=== PATIENT | male | born 1940 | race Caucasian/White ===

== ENCOUNTER 2017-06-29 17:35 | Inpatient (IN) | payer MEDICARE, MEDICAID ==
[~2017-06-29] VITALS: Ht 167.6 cm; Wt 79.4 kg
--- NOTE | 2017-06-29 17:35 | NUR ---
PORSHA WHITE BUCKNER FOR PSYCH EVAL, PATIENT WAS AGGRESSIVE IN THE FACILITY. VSS NAD A/OX2 CONFUSED. WILL CONTINUE TO MONITOR FOR ANY CHANGES DURING THE SHIFT.
[2017-06-29] MEDS ORDERED: LEVO200T8 GT (19:02)
[2017-06-29] MEDS ORDERED: ACET-2605 PO (19:02)
--- NOTE | 2017-06-29 19:15 | NUR ---
ATTEMPTED TO CONTACT [facility] REGARDING PT HX AND BEHAVIOR. NO NURSE AVAILABLE.
[2017-06-29 19:45] LABS: BASOPHILS % (AUTO) 0.4 % (0.0-2.0); HEMATOCRIT 37 % (39-51); HEMOGLOBIN 12.6 g/dL (13.5-17.5); LYMPHOCYTES % (AUTO) 10.3 % (20.0-44.0); MEAN CORPUSCULAR HGB CONC 34 g/dl (31.0-36.0); MEAN CORPUSCULAR VOLUME 89 fL (80-96); MONOCYTES # (AUTO) 0.7 /CMM (0.1-1.30); MONOCYTES % (AUTO) 7.4 % (2.0-12.0); NEUTROPHILS # (AUTO) 7.8 /CMM (1.8-8.9); NEUTROPHILS % (AUTO) 80.9 % (43.0-81.0); PLATELET COUNT (AUTO) 226 /CMM (150-450); RDW COEFFICIENT OF VARIATION 14.5 (11.5-15.0); WHITE BLOOD COUNT (AUTO) 9.6 K/uL (4.3-11.0)
--- NOTE | 2017-06-29 20:15 | NUR ---
PT WANDERING AROUND ER. PT CONFUSED AND UNORIENTED. ATTEMPTING TO REDIRECT PT.
[2017-06-29 20:26] LABS: CALCIUM, SERUM 9.1 mg/dL (8.5-10.1); CARBON DIOXIDE 26 mmol/L (21-32); CHLORIDE 103 mmol/L (98-107); GLUCOSE 89 mg/dL (74-106); POTASSIUM 3.9 mmol/L (3.5-5.1); SODIUM SERUM 140 mmol/L (136-145); UREA NITROGEN, BLOOD 19 mg/dL (7-18)
[2017-06-29 20:31] LABS: ALANINE AMINOTRANSFERASE 23 U/L (12-78); ALCOHOL, BLOOD < 3 mg/dL (0-0); ALKALINE PHOSPHATASE 69 U/L (46-116); ASPARTATE AMINOTRANSFERASE 22 U/L (15-37); BILIRUBIN,DIRECT 0.2 mg/dL (0.0-0.2); BILIRUBIN,TOTAL 1.3 mg/dL (0.2-1.0); TOTAL PROTEIN, SERUM 7.2 g/dL (6.4-8.2)
--- NOTE | 2017-06-29 20:40 | NUR ---
PT BECOMING INCREASINGLY AGITATED. PT UNDIRECTABLE. PT BECOMING PHYSICALLY AGGRESSIVE WITH STAFF AND YELLING WHEN ATTEMPTING TO BE REDIRECTED. DR AGUILA NOTIFIED.
[2017-06-29] MEDS ORDERED: HALOPERIDOL LACTATE INJ 5 MG/ML VIAL ONE (20:43)
[2017-06-29] MEDS ORDERED: HALOPERIDOL LACTATE INJ 5 MG/ML VIAL IM ONE (21:00)
--- NOTE | 2017-06-29 21:37 | NUR ---
THEO MONTES DE OCA CRISIS TEAM AT BEDSIDE FOR EVAL.
--- NOTE | 2017-06-29 21:44 | NUR ---
REPORT GIVEN TO CHIOMA MONTES DE OCA FOR CONTINUATION OF CARE.
[2017-06-30] MEDS ORDERED: MAG HYDROX/AL HYDROX/SIMETH 30 ML UDC PO PRN
[2017-06-30] MEDS ORDERED: ACETAMINOPHEN 325 MG TABLET PO PRN
[2017-06-30] MEDS ORDERED: MAGNESIUM HYDROXIDE 30 ML UDC PO PRN
[2017-06-30 00:48] VITALS: BP 135/84
--- NOTE | 2017-06-30 00:50 | NUR ---
ADMISSION NOTES ADMITTED THIS 77 Y/O MALE PATIENT ADMIT FROM [facility] ER/ , PT. INTIALLY CAME FROM [facility]. PT IS ON 5150 HOLD FOR GD ,DTO , PER HOLD PT. IS AGRESSIVE AND TWISTED FEMALE EMPLOYE ARM CAUSING INJURY UNCOOPERATIVE WITH STAFF CONFUSED, DISORGNIZE , DISORIENTED , UPON FACE TO FACE ASSESSMENT PATIENT IS A&O X1 AGRESSIVE UNCOOPERTIVE, CONFUSED DISORGNIZED , PT. IS POOR HISTORIAN, POOR INSIGHT ,POOR JUDGEMENT , V/S WNL, NO ACUTE DISTRESS NOTED, HX OF DEMENTIA , ANXIETY,HYPOTHYRODISM , MD AWARE AND NOTIFIED OF THE ADMISSION, SKIN ASSESSMENT DONE . PICTURE TAKEN AND PLACED IN THE CHART, ENCOURAGED PT. VERBALIZED ANY FEELING CONCERN TO STAFF, ORIENT TO UNIT POLICY, WILL CONTINUE TO MONITOR FOR Q15 SAFETY AND BEHAVIOR.
[2017-06-30] MEDS ORDERED: LORAZEPAM 0.5 MG TABLET PO PRN (01:30)
[2017-06-30] MEDS: TEMAZEPAM 7.5 MG CAPSULE PO PRN ×2 (01:48→21:37)
[2017-06-30 08:10] VITALS: BP 125/70
--- NOTE | 2017-06-30 09:20 | NUR ---
GPS/RN-NOTES PATIENT VERY ANXIOUS PACING ,GOING IN TO ROOM TO ROOM, REDIRECTED AND OFFERED ATIVAN. ATIVAN 0.5MG P.O PATIENT TOOK THE MEDICATION BUT SPIT. STATED" NO ,I DON'T TAKE ANY MEDICATION BECAUSE I DON'T KNOW WHAT'S IN IT".
--- NOTE | 2017-06-30 13:56 | NUR ---
SW received a visit from Stephenie Covarrubias, Community Relations from [facility]; [address] [address] [facility] [address] and reported pt being a resident of their facility. Per Ms. Covarrubias, pt will be retuning to facility once he is ready and stable. SW will follow up to ensure pt is safely and adequately discharged.
[2017-06-30 16:00] VITALS: BP 141/76
[2017-06-30 19:50] VITALS: BP 155/78
[2017-06-30 20:00] VITALS: BP 155/78
[2017-06-30] MEDS: QUETIAPINE FUMARATE 25 MG TABLET PO SCH (21:37)
--- NOTE | 2017-06-30 21:37 | NUR ---
PT VERBALIZED C/O INABILITY TO SLEEP, NON PHARMACOLOGICAL INTERVENTION RENDERED INEFFECTIVE. PT REQUESTED FOR RESTORIL GIVEN ORDERED. WILL CONT TO MONITOR, BP : 155/78, HR: 79, RR: 19, O2 SAT : 96 %. WILL CONT TO MONITOR.
--- NOTE | 2017-06-30 23:49 | NUR ---
PT ASLEEP AT THIS TIME, APPEARS COMFORTABLE. NO DISTRESS, NO SOB AT THIS TIME. WILL CONT TO MONITOR.
[2017-07-01 07:13] LABS: APPEARANCE,URINE CLEAR (CLEAR); BILIRUBIN,URINE NEGATIVE (NEGATIVE); BLOOD, URINE NEGATIVE Ery/uL (NEGATIVE); COLOR,URINE YELLOW (YELLOW); KETONES,URINE NEGATIVE (NEGATIVE); LEUKOCYTE ESTERASE ,URINE NEGATIVE (NEGATIVE); NITRITE, URINE NEGATIVE (NEGATIVE); PROTEIN,URINE NEGATIVE (NEGATIVE); UGLUCOSE NEGATIVE (NEGATIVE); UROBILINOGEN,URINE 0.2 EU/dL (0.2)
[2017-07-01] MEDS: LEVOTHYROXINE SODIUM 100 MCG TABLET PO SCH (07:45)
[2017-07-01 08:32] VITALS: BP 125/74
[2017-07-01] MEDS: QUETIAPINE FUMARATE 25 MG TABLET PO SCH ×2 (09:16→21:40)
--- NOTE | 2017-07-01 13:58 | NUR ---
Initial Discharge Plan: Pt resides at [facility]; [address] [place] [address]; . Upon discharge pt will be returning to the facility. SW contacted pts , Elly Kaab for collateral information due to pt being a poor historian. SW will follow up to ensure pt is safely and adequately discharged.
--- NOTE | 2017-07-01 15:08 | NUR ---
GPS/RN-NOTES NOTED PATIENT WITH AGGRESSIVE BEHAVIOR PUSHING GRABBING CHAIR IN THE DAY ROOM,REDIRECTED AND OFFERED ATIVAN BUT PATIENT REFUSED.
[2017-07-01 20:00] VITALS: BP 137/75
[2017-07-01] MEDS: TEMAZEPAM 7.5 MG CAPSULE PO PRN (21:40)
--- NOTE | 2017-07-02 01:10 | NUR ---
GPS/LINEN KEEPER NOTES: PT. GRAB A HOLD OF BARREL TESTER ANAIS EMPLOYEE ID. BARREL TESTER THEN PROCEED TO GRAB HIS HAND AND PRY HIS NAME ID OF PT. HAND. PT. NOW C/O PAIN ON HIS LEFT HAND WITH A RATING OF 8/10 ON PAIN SCALE. PAGED MD BISQUE CLEANER AND WAITING FOR RETURN CALL BACK.
--- NOTE | 2017-07-02 01:15 | NUR ---
GPS/PHOTOGRAMMETRIC SURVEYOR NOTES: OFFERED PT. ACETAMINOPHEN 650MG PO PRN ORDERED. PT. REFUSED. OFFERED 3X. EXPLAINED RISK AND BENEFITS PT. STILL REFUSED.
--- NOTE | 2017-07-02 01:23 | NUR ---
GPS/CANDLE CUTTER NOTES: MD GEE CALLED. EXPLAINED PT. C/O PAIN AND INCIDENT THAT OCCURED. ORDERED COMPLETE XRAY OF LEFT HAND AND MOTRIN 400MG PO PRN Q6.
[2017-07-02] MEDS ORDERED: IBUPROFEN 400 MG TABLET PO PRN (01:30)
--- NOTE | 2017-07-02 01:34 | NUR ---
GPS/RECRUITING INTERNSHIP NOTES: OFFERED PT. MOTRIN 400MG PO PRN ORDERED FOR PAIN. PT. STILL REFUSED PAIN MEDICATION. OFFERED 3X. EXPLAINED RISK AND BENEFITS. PT. STILL REFUSED.
[2017-07-02] MEDS: LEVOTHYROXINE SODIUM 100 MCG TABLET PO SCH ×2 (07:30→07:58)
[2017-07-02] MEDS: QUETIAPINE FUMARATE 25 MG TABLET PO SCH ×4 (07:58→22:00)
[2017-07-02 08:00] VITALS: BP 131/88
--- NOTE | 2017-07-02 14:13 | NUR ---
GPS/RN-NOTES RECEIVED VERBAL ORDER FROM DR. CHRISTOPHER TO CHANGE DEPAKOTE 125MG P.O TO DEPAKOTE SPRINKLE 125MG P.O Q5PM.NOTED AND CARRIED OUT. Addendum: 07/02/17 at 1728 by FIDEL MARTINEZ RN IN ADDITION TO MY NOTES ABOVE ALL DEPAKOTE ORDER WILL CHANGE TO DEPAKOTE SPRINKLE PER MR. CHRISTOPHER.
[2017-07-02 16:00] VITALS: BP 115/69
[2017-07-02] MEDS ORDERED: DIVALPROEX SODIUM 125 MG TABLET.DR PO SCH ×2 (17:00→21:00)
[2017-07-02] MEDS: DIVALPROEX SODIUM 125 MG CAP.SPRINK PO SCH ×3 (17:26→21:00)
[2017-07-02 20:00] VITALS: BP 133/56
--- NOTE | 2017-07-03 | NUR ---
GPS RN NOTE: PATIENT REFUSED PM MEDICATION, EXPLAINED THE RISK AND BENEFITS X 3 ATTEMPTS BUT PATIENT STILL REFUSED. WILL CONTINUE TO MONITOR [id number] FOR SAFETY
[2017-07-03] MEDS: LEVOTHYROXINE SODIUM 100 MCG TABLET PO SCH ×2 (07:30→09:05)
[2017-07-03] MEDS: QUETIAPINE FUMARATE 25 MG TABLET PO SCH ×3 (09:00→21:54)
[2017-07-03] MEDS: DIVALPROEX SODIUM 125 MG CAP.SPRINK PO SCH ×4 (09:00→21:54)
[2017-07-03 16:23] VITALS: BP 138/54
[2017-07-03 20:00] VITALS: BP 130/75
[2017-07-04 08:06] VITALS: BP 140/73
[2017-07-04] MEDS: DIVALPROEX SODIUM 125 MG CAP.SPRINK PO SCH ×3 (09:02→21:04)
[2017-07-04] MEDS: QUETIAPINE FUMARATE 25 MG TABLET PO SCH ×2 (09:02→21:04)
[2017-07-04] MEDS: LEVOTHYROXINE SODIUM 100 MCG TABLET PO SCH (09:02)
[2017-07-04 16:08] VITALS: BP 144/76
[2017-07-04 20:00] VITALS: BP 132/78
[2017-07-05] MEDS: LEVOTHYROXINE SODIUM 100 MCG TABLET PO SCH ×2 (07:30→09:14)
[2017-07-05 08:53] VITALS: BP 150/85
[2017-07-05] MEDS: DIVALPROEX SODIUM 125 MG CAP.SPRINK PO SCH ×5 (09:00→21:05)
[2017-07-05] MEDS: QUETIAPINE FUMARATE 25 MG TABLET PO SCH ×3 (09:00→21:05)
[2017-07-05 16:00] VITALS: BP 119/86
[2017-07-05 19:52] VITALS: BP 129/73
[2017-07-06] MEDS: TEMAZEPAM 7.5 MG CAPSULE PO PRN ×2 (02:59→22:48)
[2017-07-06 08:05] VITALS: BP 143/73
[2017-07-06] MEDS: QUETIAPINE FUMARATE 25 MG TABLET PO SCH ×2 (08:18→21:36)
[2017-07-06] MEDS: LEVOTHYROXINE SODIUM 100 MCG TABLET PO SCH (08:18)
[2017-07-06] MEDS: DIVALPROEX SODIUM 125 MG CAP.SPRINK PO SCH ×3 (08:18→21:27)
[2017-07-06 16:00] VITALS: BP 113/62
[2017-07-06 20:02] VITALS: BP 120/69
--- NOTE | 2017-07-07 07:30 | NUR ---
RN GPS NOTES PT AWAKE, SITTING IN GERICHAIR AT THE ACTIVITY ROOM, NO SIGN OF PAIN, NOT IN DISTRESS, WITH CONFUSION, SAFETY PREACAUTIONS OBSERVED.
[2017-07-07 08:00] VITALS: BP 112/76
[2017-07-07] MEDS: LEVOTHYROXINE SODIUM 100 MCG TABLET PO SCH (08:41)
[2017-07-07] MEDS: DIVALPROEX SODIUM 125 MG CAP.SPRINK PO SCH ×3 (08:41→21:20)
[2017-07-07] MEDS: QUETIAPINE FUMARATE 25 MG TABLET PO SCH ×2 (08:41→21:20)
[2017-07-07 16:00] VITALS: BP 122/74
--- NOTE | 2017-07-07 18:22 | NUR ---
RN GPS NOTES PT AWAKE, IN THE ACTIVITY ROOM, SITTING IN THE GERICHAIR, ALERT AND VERBALLY RESPONSIVE, WITH CONFUSION, CALM AND ABLE TO FOLLOW CUES, ASSISTED WITH MEALS, NEEDS ATTENDED.
[2017-07-07 20:09] VITALS: BP 143/73
[2017-07-08] MEDS: TEMAZEPAM 7.5 MG CAPSULE PO PRN (02:45)
[2017-07-08 08:00] VITALS: BP 149/70
[2017-07-08] MEDS: LEVOTHYROXINE SODIUM 100 MCG TABLET PO SCH (08:28)
[2017-07-08] MEDS: DIVALPROEX SODIUM 125 MG CAP.SPRINK PO SCH (08:28)
[2017-07-08] MEDS: QUETIAPINE FUMARATE 25 MG TABLET PO SCH (08:28)
--- NOTE | 2017-07-08 08:57 | NUR ---
DR. CHRISTOPHER GAVE AN ORDER TO D/C HOLD AND D/C TO [facility] AND TO FOLOW UP WITH PSYCH AND MEDICAL DOCTORS.
--- NOTE | 2017-07-08 13:30 | NUR ---
GPS/RN PATIENT CLEARED FOR DISCHARGE TO [facility] BY DR CHRISTOPHER AND JULIENNE WILSON. MEDICATIONS RECONCILED BY BOTH DR'S, PRESCRIPTIONS INCLUDED IN PACKET.PRESCRIPTIONS FAXED TO [facility], MEDICATIONS, EXIT CARE AND AFTER CARE PLAN EXPLAINED TO PATIENT, VERBALIZED UNDERSTANDING, VALUABLES AND BELONGINGS RETURNED TO PATIENT, PATIENT DENIES SI/HI/AH UPON DISCHARGE, PSYCHIATRIC TREATMENT PLANS MET. D/C PHOTOS TAKEN, LEFT UNIT CALM, COOPERATIVE, NO DISTRESS NOTED WITH AMBULANCE TRANSPORT AT SIDE.
--- NOTE | 2017-07-08 15:12 | NUR ---
Patient will discharge to [facility]; [address] [place] [address]; via ambulance (trip [id number]) at 1:00pm. Pt and pts , Elly Kaba have been notified and are in agreement. Ptw will be followed at the facility by the following physicians: Psychiatrist: Dr. Ashlee Rae, [id number], [facility] [address]; and Traffic Maintenance Supervisor: Dr. Rikki Marcos; [address] [place] [address]; .
== END 2017-07-08 13:49 | DRG 885 ==
LOC: ER 17:37 → GPS 22:31
PROVIDERS: ADMIT Psychiatry & Neurology Psychiatry; ATTEND Psychiatry & Neurology Psychiatry
DX: F29 Unspecified psychosis not due to a substance or known physiological condition (principal); F03.91 Unspecified dementia, unspecified severity, with behavioral disturbance; E03.9 Hypothyroidism, unspecified; Z79.899 Other long term (current) drug therapy; Z73.6 Limitation of activities due to disability; F41.9 Anxiety disorder, unspecified; F32.9 Major depressive disorder, single episode, unspecified; F94.0 Selective mutism
CPT/HCPCS: 36415; 73130-TC; 80048-TC; 80076-TC; 80305; 81000-TC; 84439-TC; 84443-TC; 84480; 85025-TC; 87081-TC; A4606; G0480; J1630; Z7610

== ENCOUNTER 2017-07-25 07:01 | Inpatient (IN) | payer MEDICARE ==
[~2017-07-25] VITALS: Ht 172.7 cm; Wt 74.8 kg
[~2017-07-25 07:01] MED LIST: ACET-2605 PO; LEVO200T8 GT
--- NOTE | 2017-07-25 07:06 | NUR ---
BBRA FROM [facility]; "GTUBE CAME OUT 45 MIN FIELD MARKETING LEAD"
[2017-07-25] MEDS ORDERED: OLANZAPINE 10 MG VIAL IM ONE ×4 (07:22→10:00)
[2017-07-25 07:44] LABS: EOSINOPHILS % (AUTO) 0.6 % (0.0-6.0); HEMATOCRIT 39 % (39-51); LYMPHOCYTES % (AUTO) 5.2 % (20.0-44.0); MEAN CORPUSCULAR HGB CONC 34 g/dl (31.0-36.0); MEAN CORPUSCULAR VOLUME 88 fL (80-96); MONOCYTES # (AUTO) 0.9 /CMM (0.1-1.30); MONOCYTES % (AUTO) 4.5 % (2.0-12.0); NEUTROPHILS # (AUTO) 17.7 /CMM (1.8-8.9); NEUTROPHILS % (AUTO) 89.7 % (43.0-81.0); RDW COEFFICIENT OF VARIATION 14.7 (11.5-15.0); RED BLOOD CELL COUNT(AUTO) 4.42 MIL/uL (4.5-6.0); WHITE BLOOD COUNT (AUTO) 19.8 K/uL (4.3-11.0)
[2017-07-25 07:59] LABS: CALCIUM, SERUM 9.8 mg/dL (8.5-10.1); CARBON DIOXIDE 34 mmol/L (21-32); CHLORIDE 101 mmol/L (98-107); CREATININE 1.2 mg/dL (0.6-1.3); GLUCOSE 109 mg/dL (74-106); INR 1.14 (0.87-1.13); PLATELET COUNT (AUTO) 906 /CMM (150-450); POTASSIUM 4.3 mmol/L (3.5-5.1); SODIUM SERUM 142 mmol/L (136-145); UREA NITROGEN, BLOOD 9 mg/dL (7-18)
[2017-07-25] MEDS ORDERED: MEROPENEM 1 G in IV NS 0.9% 100 ML IV ONE (08:00)
[2017-07-25] MEDS ORDERED: VANCOMYCIN 1 GM in IV D5W 250 ML IV ONE (08:00)
[2017-07-25] MEDS ORDERED: IV NS 0.9% 1,000 ML BAG IV ONE (08:00)
[2017-07-25] MEDS ORDERED: LORAZEPAM INJ 2 MG/ML VIAL IVP ONE (08:00)
[2017-07-25] MEDS ORDERED: LORAZEPAM INJ 2 MG/ML VIAL ONE ×2 (08:12→09:19)
[2017-07-25] MEDS ORDERED: ATOR40TA GT (08:19)
[2017-07-25] MEDS ORDERED: DIVA125T2 GT (08:19)
[2017-07-25] MEDS ORDERED: ASPI-1169 GT (08:19)
[2017-07-25] MEDS ORDERED: CRAN3875 GT (08:19)
[2017-07-25] MEDS ORDERED: QUET25TA GT (08:19)
[2017-07-25] MEDS ORDERED: LACT1CAP72 PO (08:19)
[2017-07-25 08:35] LABS: ALANINE AMINOTRANSFERASE 37 U/L (12-78); ALBUMIN 3.2 g/dL (3.4-5.0); ALKALINE PHOSPHATASE 74 U/L (46-116); ASPARTATE AMINOTRANSFERASE 42 U/L (15-37); BILIRUBIN,DIRECT 0.2 mg/dL (0.0-0.2); TOTAL PROTEIN, SERUM 7.6 g/dL (6.4-8.2)
[2017-07-25 08:38] LABS: TROPONIN I < 0.017 ng/mL (0.00-0.056)
--- NOTE | 2017-07-25 09:27 | NUR ---
VERBAL ORDER ATIVAN 1MG IV AND ZYPREXA 5MG IM
[2017-07-25 09:53] LABS: APPEARANCE,URINE Clear (CLEAR); BILIRUBIN,URINE Negative (NEGATIVE); BLOOD, URINE Negative Ery/uL (NEGATIVE); COLOR,URINE Yellow (YELLOW); KETONES,URINE Trace (NEGATIVE); LEUKOCYTE ESTERASE ,URINE Negative (NEGATIVE); NITRITE, URINE Negative (NEGATIVE); PH,URINE 7.5 (5.0-8.0); PROTEIN,URINE Negative (NEGATIVE); UGLUCOSE Negative (NEGATIVE); UROBILINOGEN,URINE 0.2 EU/dL (0.2)
[2017-07-25] MEDS ORDERED: LORAZEPAM INJ 2 MG/ML VIAL IV ONE (10:00)
--- NOTE | 2017-07-25 10:33 | NUR ---
MS-202 NURSE KINZA
--- NOTE | 2017-07-25 10:36 | NUR ---
GAVE REPORT TO KINZA MONTES DE OCA [facility] GTUBE REPLACEMENT AGITATION JULIENNE WILSON ADMITTING .
[2017-07-25 11:20] VITALS: BP 161/89
--- NOTE | 2017-07-25 11:30 | NUR ---
RN ADMITTING NOTES PATIENT ARRIVED TO UNIT AT 11AM AND PLACED IN ROOM 202. GOWN CHANGED, DIAPER CHANGED, SKIN ASSESSMENT COMPLETED, PICTURES TAKEN AND PLACED IN THE CHART. PATIENT IS AGITATED AND TRYING TO PULL ON HIS IV AND GASTRIC TUBE, ORDER FOR SOFT RESTRAINTS OBTAINED. BED IN LOW POSITION, LOCKED AND TWO SIDE RAILS ARE UP. CALL LIGHT WITHIN REACH FOR SAFETY. IV SITE IN INTACT AND PATENT, COVERED WITH KERLIX. NO PERSONAL BELONGING UPON ADMISSION. DR WILSON NOTIFIED, PENDING ADMITTING ORDERS. NO SIGNS AND SYMPTOMS OF DISTRESS OR PAIN. WILL CONTINUE TO MONITOR AND ASSESS PATIENT
[2017-07-25 16:00] VITALS: BP 149/86
[2017-07-25] MEDS ORDERED: ACETAMINOPHEN 650 MG/SUPP.RECT RC PRN (17:00)
[2017-07-25] MEDS ORDERED: Z GUARD REMEDY 2 OZ OINT TP PRN (17:00)
[2017-07-25] MEDS ORDERED: ONDANSETRON HCL/PF 4 MG/2 ML VIAL IVP PRN (17:00)
[2017-07-25] MEDS: IV NS 0.9% 1,000 ML IV PRN (17:22)
[2017-07-25] MEDS: QUETIAPINE FUMARATE 25 MG TABLET GT SCH ×2 (18:11→23:00)
[2017-07-25] MEDS: ENOXAPARIN SODIUM 40 MG/0.4 ML DISP.SYRIN SQ SCH (18:15)
[2017-07-25] MEDS: JEVITY 1.2 CAL 1,000 ML BOTTLE GT PRN (18:26)
--- NOTE | 2017-07-25 18:48 | NUR ---
RN CLOSING NOTES PATIENT IS IN BED, CONFUSED. SATURATING 95-98% ON ON 3L NC, NO SIGNS AND SYMPTOMS OF DISTRESS. DENIED PAIN. IV ACCESS INTACT AND PATENT, COVERED WITH KERLIX. SAFETY PRECAUTIONS FOR FALL INITIATED, BED IN LOW POSITION, LOCKED AND TWO SIDE RAILS ARE UP FOR SAFETY. CALL LIGHT IN REACH. ALL NURSING CARE PROVIDED. PATIENT KEPT CLEAN AND DRY. WILL ENDORSE TO NIGHT RN FOR MIRTA.
--- NOTE | 2017-07-25 19:20 | NUR ---
RN INITIAL NOTES: RECEIVED REPORT FROM FALGUNI ECHOLS PT FROM [facility] CAME IN FOR GTUBE REPLACEMENT. PT BEEN COMBATIVE TRIED PULLING LINES AND GTUBE, WAS GIVEN IM ZYPREXA IN ER, ALSO ATIVAN, AND ATB. PT IN THE UNIT WITH BILATERAL SOFT WRIST RESTRAINT IN PLACED, PT ABLE TO MOVE AND WIGGLE ARMS, WITH GOOD CAPILLARY REFILL NOTED, BILATERAL RADIAL PULSES PATENT AND PALPABLE, NO S/S OF IMPEDIMENT IN CIRCULATION NOTED. PT ON GTUBE FEEDING, JEVITY 1.2 AT 20ML/HR, GOAL IS 55, HOWEVER RESIDUAL NOTED IS 50ML, BROWN COLORED, ABDOMEN SOFT TO TOUCH WITH ACTIVE BOWEL SOUND NOTED, PT HAS ABDOMINAL BINDER IN PLACED, AND ALSO ON GTUBE SITE THERE IS A DRESSING/SECURED DRESSING IN ORDER FOR THE GTUBE TO NOT BE PULLED OUT. PT HAS IV ACCESS PATENT AND FLUSHING WELL, INFUSING WITH NS AT 75ML/HR. BLE OFFLOADED. POT ON 3L NC, RESPIRATION EVEN AND UNLABORED. PT IS CONFUSED, AROUSABLE, TALKING TO HIMSELF, TRIED SCRATCHING AND PULLING OUT GOWN AND BLANKETS. SAFETY PRECAUTIONS FOR FALL INITIATED, CALL LIGHT IN REACH, WILL CONTINUE TO MONITOR.
[2017-07-25 20:00] VITALS: BP_SYST 136; BP_SYST 149; BP_DIAS 73; BP_DIAS 86
--- NOTE | 2017-07-25 22:00 | NUR ---
rn notes: reassess tube gtube residual and obtained 30ml of brownish gastric juice, not coffee ground, brut this also doesnt look like its blood, will not increase tube feeding rate at this time.
[2017-07-25 22:13] VITALS: BP 116/60
[2017-07-25] MEDS: VALPROIC ACID 250 MG/5 ML UDC GT SCH (22:16)
[2017-07-25] MEDS: LACTOBACILLUS RHAMNOSUS GG 1 EACH CAP.SPRINK PO SCH (22:17)
[2017-07-25] MEDS: ATORVASTATIN 40 MG TABLET GT SCH (22:17)
--- NOTE | 2017-07-25 23:00 | NUR ---
RN NOTES: REASSESS PT'S RESIDUAL, NOW ITS 30ML BROWN COLORED RESIDUAL, GRTUBE FEEDING WILL NOT BE INCREASE, THE RESIDUAL STILL HIGH, PT ONLY GETTING 20ML/HR OF JEVITY AND YET THERE'S STILL RESIDUAL LEFT. WILL CONTINUE MONITORING PT.
--- NOTE | 2017-07-25 23:00 | NUR ---
NON ADMIN OF SEROQUEL: PT SLEEPING, APPEARS CALM AND COMFORTABLE, AROUSES TO TACTILE STIMULI ALTHOUGH HE'S CONFUSED, WILL HOLD ONTO THE SEROQUEL FOR TONIGHT AND WILL MONITOR HOW PT IS BEHAVING
--- NOTE | 2017-07-25 23:02 | NUR ---
rn notes: bchecked pt's blood sugar result is 102, pt on gtube feeding.
--- NOTE | 2017-07-26 | NUR ---
rn notes: pt abdomen soft to touch with active bowel sound heard upon auscultation of the abdomen, residual was checked and obtained 30ml of brownish gastric juice noted, will not increase feed rate at this time, will continue monitoring
--- NOTE | 2017-07-26 01:00 | NUR ---
RN NOTES: PT ASLEEP,APPEARS CALM, RESTRAIN WAS RELEASED AT THIS TIME, WILL CONTINUE TO MONITOR PT'S BEHAVIOR AND NEED FOR RESTRAINT
--- NOTE | 2017-07-26 02:00 | NUR ---
RN NOTES: PT RESIDUAL REMAINS 30ML, BROWNISH FOOD/FEEDING CONTENTS, ABDOMEN SOFT TO TOUCH WITH ACTIVE BOWEL SOUND NOTED, WILL CONTINUE MONITORING
--- NOTE | 2017-07-26 03:00 | NUR ---
RN NOTES: APPLIED THE BILATERAL RESTRAINTS BACK PT BEEN AGITATED, YELLING OUT, SPITTING, AND TRYING TO PULL OUT GTUBE. RESTRAINT PROTOCOL FOLLOWED, WILL CONTINUE MONITORING PT.
[2017-07-26] MEDS: IV NS 0.9% 1,000 ML IV PRN ×2 (04:02→17:44)
[2017-07-26] MEDS: QUETIAPINE FUMARATE 25 MG TABLET GT SCH ×4 (04:04→22:47)
--- NOTE | 2017-07-26 04:09 | NUR ---
rn notes: reassess pt's residual, abdomen soft to topuch with active bowel sound heard, dressing on gtube remains in placed, no residual obtained at this time, will increase tube feeding at least 10, now it will be at 30ml/hr
--- NOTE | 2017-07-26 04:17 | NUR ---
prn zofran: prn zofran administered at this time, as pt noted to be vomiting, one time, pt was placed on high fowlers position, suction set up secured, vs checked and recorded, tube feeding stop at this time, will hold off onto the feeding, will continue to monitor pt.
[2017-07-26 04:21] VITALS: BP 93/53
--- NOTE | 2017-07-26 05:30 | NUR ---
RN NOTES: RESIDUAL IS NOW 50ML OF FEEDING CONTENTS, WILL CONTINUE TO HOLD FEEDING, GTUBE CLAMPED.
[2017-07-26 06:27] LABS: BASOPHILS % (AUTO) 0.1 % (0.0-2.0); EOSINOPHILS % (AUTO) 0.7 % (0.0-6.0); HEMATOCRIT 36 % (39-51); HEMOGLOBIN 11.7 g/dL (13.5-17.5); LYMPHOCYTES # (AUTO) 0.8 /CMM (0.8-4.8); LYMPHOCYTES % (AUTO) 5.3 % (20.0-44.0); MEAN CORPUSCULAR HGB CONC 33 g/dl (31.0-36.0); MEAN CORPUSCULAR VOLUME 88 fL (80-96); MONOCYTES # (AUTO) 1.1 /CMM (0.1-1.30); MONOCYTES % (AUTO) 7.3 % (2.0-12.0); NEUTROPHILS # (AUTO) 13.3 /CMM (1.8-8.9); NEUTROPHILS % (AUTO) 86.6 % (43.0-81.0); PLATELET COUNT (AUTO) 728 /CMM (150-450); RDW COEFFICIENT OF VARIATION 14.9 (11.5-15.0); RED BLOOD CELL COUNT(AUTO) 4.07 MIL/uL (4.5-6.0); WHITE BLOOD COUNT (AUTO) 15.3 K/uL (4.3-11.0)
[2017-07-26 06:53] LABS: CHOLESTEROL 141 mg/dL (<200); HDL CHOLESTEROL 38 mg/dL (40-60); LDL 86 mg/dL (0-99); THYROID STIMULATING HORMONE 44.732 uIU/mL (0.358-3.74); TRIGLYCERIDES 107 mg/dL (30-150)
[2017-07-26 06:56] LABS: ALANINE AMINOTRANSFERASE 29 U/L (12-78); ALBUMIN 2.6 g/dL (3.4-5.0); ALKALINE PHOSPHATASE 62 U/L (46-116); ASPARTATE AMINOTRANSFERASE 31 U/L (15-37); BILIRUBIN,TOTAL 0.8 mg/dL (0.2-1.0); CALCIUM, SERUM 8.8 mg/dL (8.5-10.1); CARBON DIOXIDE 30 mmol/L (21-32); CHLORIDE 104 mmol/L (98-107); CREATININE 1.1 mg/dL (0.6-1.3); GLUCOSE 104 mg/dL (74-106); MAGNESIUM 2.1 mg/dL (1.8-2.4); PHOSPHORUS 2.5 mg/dL (2.5-4.9); POTASSIUM 3.5 mmol/L (3.5-5.1); SODIUM SERUM 142 mmol/L (136-145); TOTAL PROTEIN, SERUM 6.4 g/dL (6.4-8.2); UREA NITROGEN, BLOOD 9 mg/dL (7-18)
--- NOTE | 2017-07-26 07:13 | NUR ---
RN CLOSING NOTES: PT IN BED, AWAKE, REMAINS COMBATIVE AND TRYING TO PULL OUT GTUBE AND IV WHEN RESTRAINT IS RELEASE, ABLE TO REMOVE OXYGEN AND BITE ON THE CANNULA, ON RA SPO2 94% ON RA, ATTACHED TO CONTINUOS PULSE OX. BILATERAL SOFT WRIST RESTRAINT REMAINS IN PLACED, RADIAL PULSES REMAIN PALPABLE, GOOD CAPILLARY REFILL NOTED, PT ABLE TO MOVE AND WIGGLE ARMS AND HAND, NO S/S OF IMPEDIMENT IN CIRCULATION NOTED, GTUBE REMAINS CLAMPED, RESIDUAL REMAINS 50ML FOOD/FEEDING CONTENTS. BLE OFFLOADED, VS REMAINS STABLE, NEEDS ATTENDED, SAFETY PRECAUTIONS FOR FALL INITIATED, CALL LIGHT IN REACH, WILL ENDORSE TO DAY RN FOR MITRA.
--- NOTE | 2017-07-26 07:15 | NUR ---
RN OPEN NOTES RECEIVED BEDSIDE REPORT FROM NIGHT RN. PATIENT IS IN BED, AWAKE AND CONFUSED. OBSERVED TALKING TO HIM SELF. PER DOCTOR OF PHARMACY RN, PATIENT VOMITED LAST NIGHT AND WASN'T ABLE TO TOLERATE FEEDING. NPO FOR NOW, WILL CONSULT WITH DR WILSON. NO SIGNS AND SYMPTOMS OF DISTRESS. BED IN LOW POSITION, LOCKED AND TWO SIDE RAILS ARE UP FOR SAFETY. CALL LIGHT WITHIN REACH FOR SAFETY. WILL CONTINUE TO MONITOR AND ASSESS PATIENT.
[2017-07-26 08:00] VITALS: BP 97/58
[2017-07-26] MEDS: ASPIRIN 81 MG TAB.CHEW GT SCH (08:50)
[2017-07-26] MEDS: VALPROIC ACID 250 MG/5 ML UDC GT SCH ×2 (08:50→21:00)
[2017-07-26] MEDS: LEVOTHYROXINE SODIUM 100 MCG TABLET GT SCH (08:50)
[2017-07-26] MEDS: LACTOBACILLUS RHAMNOSUS GG 1 EACH CAP.SPRINK PO SCH ×2 (08:50→21:00)
--- NOTE | 2017-07-26 10:42 | NUR ---
PATIENT A LITTLE SEDATED. HOLDING SEROQUEL
--- NOTE | 2017-07-26 13:26 | NUR ---
WOUND CARE CONSULT: LIMITED ASSESSMENT TODAY DUE TO PT AGITATED AND COMBATIVE. DEFER TO MD FOR ABDOMINAL WALL CELLULITIS. G TUBE IN PLACE WITH SMALL AMOUNT OF BROWNISH DRAINAGE BUT DIFFICULT TO ASSESS WITH PT AGITATION. SCABS NOTED TO RT LATERAL KNEE AND RT ELBOW, PRESENT ON ADMISSION. PT TENDS TO RUB HIS HEELS ON BED AND KICK PILLOWS OUT WHEN HEEL FLOATING INITIATED. ALL SKIN PROTECTION RECOMMENDATIONS DISCUSSED WITH NURSING STAFF. PT IS INCONTINENT. WILL SEE PRN. MD IN AGREEMENT WITH PLAN OF CARE. PT ON SYLVESTER ISOFLEX LOW AIRLOSS BED. Addendum: 07/26/17 at 1330 by ANGELES PARADA WNDNU Amended: Links added.
--- NOTE | 2017-07-26 14:43 | NUR ---
PER DIETARY KILN TESTER, FEEDING GOAL IS 70ML/HR PLUS PROSTAT BID. WILL ENDORSE TO MD FOR ORDER. MD TODAY IS JULIENNE WILSON
[2017-07-26 16:00] VITALS: BP 155/87
--- NOTE | 2017-07-26 16:58 | NUR ---
Patient has hx of dementia and prior pscyhe admission. He currently resides at [address] [place], [place] [address]ab [phone]. He is bed/chair bound and requires max assist with adl's. Current dc plan is to return to SNF when discharge Addendum: 07/26/17 at 1658 by JOSESITO CHANCE RN Amended: Links added.
[2017-07-26] MEDS: PANTOPRAZOLE 40 MG VIAL IV SCH (17:41)
--- NOTE | 2017-07-26 18:59 | NUR ---
RN CLOSING NOTES PATIENT IS IN BED, CONFUSED. SATURATING 95-98% ON ON 3L NC, NO SIGNS AND SYMPTOMS OF DISTRESS. IV ACCESS INTACT AND PATENT, COVERED WITH KERLIX. SAFETY PRECAUTIONS FOR FALL INITIATED, BED IN LOW POSITION, LOCKED AND TWO SIDE RAILS ARE UP FOR SAFETY. CALL LIGHT WITHIN REACH. ALL NURSING CARE PROVIDED. PATIENT KEPT CLEAN AND DRY. STAT CT ABDOMEN PENDING. NPO FOR NOW. WILL ENDORSE TO NIGHT RN FOR MIRTA.
--- NOTE | 2017-07-26 19:45 | NUR ---
RN OPENING NOTES RECEIVED REPORT FROM DAYSHIFT FALGUNI ECHOLS. Pt IS CONFUSED, AGITATED, COMBATIVE. ON JENNIFER SOFT WRIST RESTRAINTS. GTFEEDNG STOPPED AT THIS TIME DUE TO Pt NOT TOLERATING FEEDING. ABD'L BINDER IN PLACE TO PREVENT Pt FROM PULLING IT OUT AGAIN. IV ACCESS ON LFA #20G, IVF NS @75ML/HR. NO S/S OF ACUTE DISTRESS OR SOB NOTED. SAFETY MEASURES IN PLACE. BED LOW, LOCKED, HOB ELEVATED, SIDE RAILS UP. WILL CONTINUE TO MONITOR Pt THROUGHOUT THE NIGHT FOR SAFETY.
[2017-07-26 20:00] VITALS: BP 154/71
[2017-07-26] MEDS: ATORVASTATIN 40 MG TABLET GT SCH (22:00)
--- NOTE | 2017-07-26 22:50 | NUR ---
RN NOTES HELD ALL PO/GT MEDS. Pt's GTFEEDING IS ON HOLD DUE TO Pt NOT TOLERATING FEEDING.
[2017-07-26] MEDS: ENOXAPARIN SODIUM 40 MG/0.4 ML DISP.SYRIN SQ SCH (22:56)
[2017-07-27] MEDS: QUETIAPINE FUMARATE 25 MG TABLET GT SCH ×4 (04:15→22:58)
--- NOTE | 2017-07-27 06:45 | NUR ---
RN CLOSING NOTES NO SIGNIFICANT CHANGES IN Pt's CONDITION. Pt REMAINS STABLE AT THIS TIME. NO S/S OF ACUTE DISTRESS OR SOB NOTED DURING THE NIGHT. ALL NEEDS MET AND ATTENDED TO. SAFETY MEASURES IN PLACE. JENNIFER SOFT WRIST RESTRAINTS IN PLACE. WILL ENDORSE TO DAYSHIFT RN FOR Pt's MIRTA.
--- NOTE | 2017-07-27 07:22 | NUR ---
MS RN OPENING NOTES RECEIVED PATIENT AWAKE IN BED IN NO ACUTE SIGNS OF DISTRESS. A/O X1, CONFUSED AND AGITATED. ON O2 VIA N/C @ 3LPM, BREATHING EVEN WITH NO SOB NOTED. ON B/L SOFT WRIST RESTRAINTS, GOOD CIRCULATION NOTED. G-TUBE FEEDING ON HOLD PER REPORT DUE TO PT NOT TOLERATING FEEDING. ABDOMINAL BINDER IN PLACE TO PREVENT PT FROM PULLING G-TUBE OUT AGAIN. IV ACCESS ON LFA INTACT AND PATENT, IVF OF NS @75ML/HR, INFUSING WELL, NO SIGNS OF INFILTRATION NOTED. SAFETY MEASURES IN PLACE. HOB ELEVATED. BED LOW/LOCKED POSITION WITH SIDE-RAILS UP. WILL CONTINUE TO MONITOR PATIENT.
[2017-07-27] MEDS: LIOTHYRONINE SODIUM (5 MCG/TA 5 MCG TABLET GT SCH (07:30)
[2017-07-27] MEDS: LEVOTHYROXINE SODIUM 100 MCG TABLET GT SCH (07:30)
[2017-07-27 08:00] VITALS: BP 151/89
[2017-07-27] MEDS: LACTOBACILLUS RHAMNOSUS GG 1 EACH CAP.SPRINK PO SCH ×2 (09:00→22:58)
[2017-07-27] MEDS: VALPROIC ACID 250 MG/5 ML UDC GT SCH ×2 (09:00→22:57)
[2017-07-27] MEDS: ASPIRIN 81 MG TAB.CHEW GT SCH (09:00)
--- NOTE | 2017-07-27 09:16 | NUR ---
RN NOTES ALL MORNING MEDS VIA G-TUBE NOT ADMINISTERED PER ODER DUE TO PT'S NOT TOLERATING ANY FEEDING VUIA GTUBE. WILL CONTINUE TO MONITOR.
[2017-07-27] MEDS: IV NS 0.9% 1,000 ML IV PRN (10:00)
--- NOTE | 2017-07-27 10:10 | NUR ---
RN NOTES RECEIVED CALL FROM BALWINDER GONZÁLES TO OBTAIN CONSENT FOR EGD WITH PEG AND TO CONTINUE PATIENT ON NPO.
--- NOTE | 2017-07-27 12:28 | NUR ---
RN NOTES PATIENT FOR EGD WITH PEG PLACEMENT TODAY. TELEPHONE CONSENT OBTAINED FROM PT'S OSEI HARRIS AND WAS VERIFIED WITH ANOTHER RN ON THE UNIT. WILL CONTINUE TO MONITOR
[2017-07-27 15:55] VITALS: BP 150/79
[2017-07-27] MEDS: PANTOPRAZOLE 40 MG VIAL IV SCH (17:24)
--- NOTE | 2017-07-27 18:14 | NUR ---
RN NOTES PATIENT PICK-UP BY O.R. NURSE JUST NOW VIA HIS BED FOR EGD WITH PEG PLACEMENT. A/O X 1, CONFUSED BUT IN NO ACUTE SIGNS OF DISTRESS.
--- NOTE | 2017-07-27 18:56 | NUR ---
MS RN CLOSING NOTES PATIENT STILL IN THE O.R. AT THIS TIME FOR EGD UNDER DR GARCIA. A/O X1, CONFUSED AND AGITATED ON AND OFF DURING THE DAY. B/L SOFT WRIST RESTRAINTS KEPT IN PLACE DURING THE DAY. ALL NEEDS AND CARE PROVIDED WELL. WILL ENDORSE TO HYPERCIL CORE TRANSFORMER ASSEMBLER NURSE FOR MIRTA.
--- NOTE | 2017-07-27 19:45 | NUR ---
RN OPENING NOTES RECEIVED REPORT FROM DAYSHIFT FALGUNI MONROE. Pt HAS RETURNED FROM THE OR. Pt IS CONFUSED, AGITATED, & COMBATIVE, ATTEMPTING TO PULL OUT IV LINE AND GTUBE. ON JENNIFER SOFT WRIST RESTRAINTS. ABD'L BINDER IN PLACE TO PREVENT Pt FROM PULLING GTUBE OUT AGAIN. WILL CARRY OUT ORDERS FROM DR GARCIA. IV ACCESS ON LFA #22G, IVF NS @75ML/HR. NO S/S OF ACUTE DISTRESS OR SOB NOTED. SAFETY MEASURES IN PLACE. BED LOW, LOCKED, HOB ELEVATED, SIDE RAILS UP. WILL CONTINUE TO MONITOR Pt THROUGHOUT THE NIGHT FOR SAFETY.
[2017-07-27 20:00] VITALS: BP 170/91
[2017-07-27] MEDS: ATORVASTATIN 40 MG TABLET GT SCH (22:57)
[2017-07-27] MEDS: ENOXAPARIN SODIUM 40 MG/0.4 ML DISP.SYRIN SQ SCH (22:59)
--- NOTE | 2017-07-27 23:00 | NUR ---
RN NOTES STARTED ON GTF JEVITY 1.2 @20ML/HR. WILL CONTINUE TO MONITOR TO SEE IF Pt IS TOLERATING WELL. PREVIOUS GOAL PER DIETITIAN WAS @70ML/HR.
[2017-07-27] MEDS: JEVITY 1.2 CAL 1,000 ML BOTTLE GT PRN (23:14)
[2017-07-28] MEDS: IV NS 0.9% 1,000 ML IV PRN ×2 (06:16→19:56)
[2017-07-28] MEDS: QUETIAPINE FUMARATE 25 MG TABLET GT SCH ×4 (06:16→22:29)
[2017-07-28 07:01] LABS: CALCIUM, SERUM 8.7 mg/dL (8.5-10.1); CARBON DIOXIDE 24 mmol/L (21-32); CHLORIDE 102 mmol/L (98-107); CREATININE 0.8 mg/dL (0.6-1.3); GLUCOSE 76 mg/dL (74-106); POTASSIUM 3.8 mmol/L (3.5-5.1); SODIUM SERUM 138 mmol/L (136-145); UREA NITROGEN, BLOOD 9 mg/dL (7-18)
--- NOTE | 2017-07-28 07:20 | NUR ---
RN NOTES Patient confused, breathing even and unlabored, no distress noted, g-tube feeding increased to 25ml/hr, will monitor for residual, bilateral soft wrist restraints in placed, checked for skin breakdown and circulation, kept comfortable, needs attended, safety measures in placed, call light within reach, will continue to monitor.
[2017-07-28 08:00] VITALS: BP 135/85
[2017-07-28 08:42] LABS: BASOPHILS # (AUTO) 0.1 /CMM (0.0-0.2); BASOPHILS % (AUTO) 0.9 % (0.0-2.0); EOSINOPHILS % (AUTO) 1.5 % (0.0-6.0); HEMATOCRIT 36 % (39-51); HEMOGLOBIN 12.2 g/dL (13.5-17.5); LYMPHOCYTES # (AUTO) 0.9 /CMM (0.8-4.8); LYMPHOCYTES % (AUTO) 8.8 % (20.0-44.0); MEAN CORPUSCULAR HGB CONC 34 g/dl (31.0-36.0); MEAN CORPUSCULAR VOLUME 88 fL (80-96); MONOCYTES # (AUTO) 0.9 /CMM (0.1-1.30); MONOCYTES % (AUTO) 8.7 % (2.0-12.0); NEUTROPHILS # (AUTO) 7.9 /CMM (1.8-8.9); NEUTROPHILS % (AUTO) 80.1 % (43.0-81.0); PLATELET COUNT (AUTO) 687 /CMM (150-450); RED BLOOD CELL COUNT(AUTO) 4.09 MIL/uL (4.5-6.0); WHITE BLOOD COUNT (AUTO) 9.9 K/uL (4.3-11.0)
[2017-07-28] MEDS: LEVOTHYROXINE SODIUM 100 MCG TABLET GT SCH (09:37)
[2017-07-28] MEDS: ASPIRIN 81 MG TAB.CHEW GT SCH (09:37)
[2017-07-28] MEDS: PANTOPRAZOLE 40 MG VIAL IV SCH ×2 (09:37→21:48)
[2017-07-28] MEDS: LIOTHYRONINE SODIUM (5 MCG/TA 5 MCG TABLET GT SCH (09:37)
[2017-07-28] MEDS: LACTOBACILLUS RHAMNOSUS GG 1 EACH CAP.SPRINK PO SCH ×2 (09:37→21:50)
[2017-07-28] MEDS: VALPROIC ACID 250 MG/5 ML UDC GT SCH ×2 (09:37→21:48)
--- NOTE | 2017-07-28 11:30 | NUR ---
RN NOTES PATIENT SEEN BY DR. ARCOS AND HAS DISCUSSED HOSPICE CARE AT [facility]. NO RESIDUAL NOTED AT THIS TIME, GTF INCREASED TO 30ML/HR. WILL CONTINUE TO MONITOR.
[2017-07-28 16:00] VITALS: BP 125/80
--- NOTE | 2017-07-28 18:56 | NUR ---
RN NOTES PATIENT CONFUSED, AND CAN BE COMBATIVE DURING ADL CARE, RESTRAINT IN PLACED, AND MONITORED FOR SKIN BREAKDOWN AND CIRCULATION. GTF ONGOING AND TOLERATING WELL WITH 30CC/HR. NO RESIDUAL NOTED AT THIS TIME. PATIENT'S SKIN CARE RENDERED, KEPT SKIN CLEAN AND DRY, TURNED AND REPOSITIONED EVERY 2 HOURS, OFFLOADED JENNIFER HEELS. NEEDS ATTENDED AND MET, CALL LIGHT WITHIN REACH, WILL ENDORSE TO MOBILE DEVICE ENGINEER FOR MIRTA.
--- NOTE | 2017-07-28 19:10 | NUR ---
MS RN NOTES RECEIVED PT IN BED, AWAKE, CONFUSED. VERBALLY RESPONSIVE. FOUND PT REMOVING THE ABDOMINAL BINDER. FREQUENT REMINDER DONE, RESTRAINT APPLIED. NO DISTRESS, NO SOB NOTED. RESPIRATION IS EVEN AND UNLABORED. NO S/S OF PAIN OR DISCOMFORT. IV SITE ON LFA INTACT AND PATENT, IVF INFUSING WELL. GTF JOSEFA WELL. ASPIRATION PRECAUTION OBSERVED. SAFETY PRECAUTIONS OBSERVED. ALL NEEDS ANTICIPATED AND MET. CALL LIGHT WITHIN REACH. WILL CONT TO MONITOR.
[2017-07-28 20:00] VITALS: BP 137/62
--- NOTE | 2017-07-28 20:00 | NUR ---
MARKEL THE PT DOING PM CARE AT THIS TIME, TREATMENT ON RIGHT BUTTOCK RENDERED, PT JOSEFA WELL. PT DENIES ANY PAIN OR DISCOMFORT AT THIS TIME. ALL NEEDS ATTENDED . WILL CONT TO MONITOR. Addendum: 07/28/17 at 2021 by KRISTY SALAZAR RN INCORRECT PT DOCUMENTATION
[2017-07-28] MEDS: ATORVASTATIN 40 MG TABLET GT SCH (21:50)
[2017-07-28] MEDS: ENOXAPARIN SODIUM 40 MG/0.4 ML DISP.SYRIN SQ SCH (21:53)
[2017-07-29] MEDS: JEVITY 1.2 CAL 1,000 ML BOTTLE GT PRN (03:28)
[2017-07-29] MEDS: QUETIAPINE FUMARATE 25 MG TABLET GT SCH ×3 (04:56→17:00)
--- NOTE | 2017-07-29 07:41 | NUR ---
MS RN NOTES RECEIVED PT IN BED, RESTING COMFORTABLY AT THIS TIME, SLEEPING, AROUSES EASILY TO VERBAL AND TACTILE STIMULI. PATIENT CONFUSED, UNABLE TO COMMUNICATE AND MAKE NEEDS KNOWN. ON BILATERAL SOFT WRIST RESTRAINTS FOR SAFETY, CHECKED FOR CIRCULATION, NO APPARENT DISTRESS, NO SOB, RESPIRATION EVEN AND UNLABORED ON O2 AT 3L VIA NC SAT ABOVE 91%. NO S/S OF PAIN OR DISCOMFORT, IV SITE TO LFA INTACT AND PATENT INFUSING IV FLUIDS AT 75CC/HR. G-TUBE IN PLACE JEVITY 1.2 FEEDING VIA PUMP AT 40CC/HR MAY INCREASE UP TO 55 TOLERATED. SAFETY MEASURES RENDERED, BED IN LOCKED AND LOWEST POSITION, CALL LIGHT PLACED WITHIN EASY REACH. WILL CONTINUE TO MONITOR.
[2017-07-29] MEDS: LEVOTHYROXINE SODIUM 100 MCG TABLET GT SCH (07:56)
[2017-07-29] MEDS: LIOTHYRONINE SODIUM (5 MCG/TA 5 MCG TABLET GT SCH (07:56)
[2017-07-29 08:06] VITALS: BP 97/58
[2017-07-29] MEDS: LACTOBACILLUS RHAMNOSUS GG 1 EACH CAP.SPRINK PO SCH (08:06)
[2017-07-29] MEDS: VALPROIC ACID 250 MG/5 ML UDC GT SCH (08:06)
[2017-07-29] MEDS: ASPIRIN 81 MG TAB.CHEW GT SCH (08:06)
[2017-07-29] MEDS: PANTOPRAZOLE 40 MG VIAL IV SCH (08:06)
--- NOTE | 2017-07-29 11:13 | NUR ---
MS/RN NOTES PATIENT CLEANED AND REPOSITIONED, SCHEDULE MEDICATIONS GIVEN INDICATED, BILATERAL SOFT WRIST RESTRAINTS CHECKED FOR CIRCULATION, GTUBE FEEDING OFF AT THIS TIME PER ORDERS AND WILL RESUME AT 2:00, WILL CONTINUE TO MONITOR.
[2017-07-29 16:00] VITALS: BP 144/81
--- NOTE | 2017-07-29 16:30 | NUR ---
MS.RN NOTES NO SIGNIFICANT CHANGES NOTED, PATIENT STABLE, RESTING IN BED, AGITATED, PICKING AT SHEETS AND CONSTANT LEG MOVEMENT. PATIENT CHECKED FOR SAFETY, COMFORT MEASURES RENDERED. WILL CONTINUE TO MONITOR.
--- NOTE | 2017-07-29 17:32 | NUR ---
MS/BLACK TOP RAKER NOTE ALL DISCHARGE FORMS COMPLETED, PRINTED AND SIGNED. PLACED COPIES IN PATIENTS DISCHARGE FOLDER, DISCUSSED WITH STEVEN FROM [facility] REGARDING PATIENT'S PLAN OF CARE, REVIEWED MEDICATION LIST AND PROVIDED DETAILED REPORT. PICTURES TAKEN AND PLACED IN CHART, IV REMOVED AND COVERED PROPERLY. GTUBE SITE COVERED PROTECTED BY ABDOMINAL PAD FOR SAFETY, BILATERAL WRIST RESTRAINS REMAINS IN PLACE FOR SAFETY PURPOSES. PATIENT LEFT HOSPITAL VIA AMBULANCE IN STABLE CONDITION .
== END 2017-07-29 17:35 | DRG 393 ==
LOC: ER 07:03 → MEDSG2 10:47
PROVIDERS: ADMIT Nurse Practitioner Acute Care; ATTEND Nurse Practitioner Acute Care
PROC: 0DH63UZ Insertion of Feeding Device into Stomach, Percutaneous Approach (ICD-10-PCS; 2017-07-27)
PROC: 3E0G76Z Introduction of Nutritional Substance into Upper GI, Via Natural or Artificial Opening (ICD-10-PCS; 2017-07-27)
PROC: 0DC68ZZ Extirpation of Matter from Stomach, Via Natural or Artificial Opening Endoscopic (ICD-10-PCS; principal; 2017-07-27 18:48)
DX: K94.22 Gastrostomy infection (principal); A41.9 Sepsis, unspecified organism; R53.2 Functional quadriplegia; J90 Pleural effusion, not elsewhere classified; L03.311 Cellulitis of abdominal wall; M96.841 Postprocedural hematoma of a musculoskeletal structure following other procedure; T79.7XXA Traumatic subcutaneous emphysema, initial encounter; J98.11 Atelectasis; R13.10 Dysphagia, unspecified; F03.90 Unspecified dementia, unspecified severity, without behavioral disturbance, psychotic disturbance, mood disturbance, and anxiety; D47.3 Essential (hemorrhagic) thrombocythemia; E03.9 Hypothyroidism, unspecified; E78.5 Hyperlipidemia, unspecified; K59.00 Constipation, unspecified; K44.9 Diaphragmatic hernia without obstruction or gangrene; E86.0 Dehydration; Z79.82 Long term (current) use of aspirin; Z79.899 Other long term (current) drug therapy; Y83.3 Surgical operation with formation of external stoma as the cause of abnormal reaction of the patient, or of later complication, without mention of misadventure at the time of the procedure; Y82.9 Unspecified medical devices associated with adverse incidents; Y92.129 Unspecified place in nursing home as the place of occurrence of the external cause; R22.2 Localized swelling, mass and lump, trunk; K94.23 Gastrostomy malfunction; K20.9 Esophagitis, unspecified; Z51.5 Encounter for palliative care; D64.9 Anemia, unspecified
CPT/HCPCS: 36415; 71045-TC; 80048-TC; 80053-TC; 80061-TC; 80076-TC; 81000-TC; 82962-TC; 83605-TC; 83735-TC; 84100-TC; 84439-TC; 84443-TC; 84484-TC; 85025-TC; 85730-TC; 87040-TC; 87070-TC; 87081-TC; 87086-TC; 88305-TC; A4216; A4606; A6402; C9113; J1650; J2060; J2185; J2405; J2704; J3370; J3490; J7030; J7060; Z7610